=== PATIENT | male | born 1955 | race Hispanic/Latino ===

== ENCOUNTER 2023-07-12 10:08 | Outpatient (RCR) | payer MEDICARE, OTHER ==
[~2023-07-12 10:08] MED LIST: MUPIROCIN 2% OINT 22 GM TUBE ONE
[2023-07-12] MEDS ORDERED: MUPIROCIN 2% OINT 22 GM TUBE ONE (11:50)
[2023-07-16] MEDS ORDERED: COREG3.125 MG PO (14:25)
[2023-07-16] MEDS ORDERED: TASIGNA150 MG PO (14:25)
[2023-07-16] MEDS ORDERED: CLOPIDOGREL75 MG PO (14:25)
[2023-07-16] MEDS ORDERED: LOSARTAN POTASS25 MG PO (14:25)
[2023-07-16] MEDS ORDERED: CRESTOR10 MG PO (14:25)
[2023-07-16] MEDS ORDERED: FEROSUL325 MG PO (14:25)
[2023-07-16] MEDS ORDERED: DOXAZOSIN MESYLA2 MG PO (14:25)
[2023-07-16] MEDS ORDERED: GABAPENTIN300 MG PO (14:25)
[2023-07-16] MEDS ORDERED: NAPROXEN250 MG PO (14:25)
[2023-07-16] MEDS ORDERED: MUPIROCIN22 GM TOP (14:25)
[2023-07-16] MEDS ORDERED: PROTONIX20 MG PO (14:25)
[2023-07-16] MEDS ORDERED: TIZANIDINE HCL4 M1 PO (14:25)
[2023-07-16] MEDS ORDERED: ASPIRIN CHEW81 MG PO (14:25)
[2023-07-16] MEDS ORDERED: NIFEDIPINE ER30 M1 PO (14:25)
[2023-07-16] MEDS ORDERED: FOLIC ACID0.4 MG PO (14:25)
== END 2023-07-27 ==
LOC: WCC 10:08
PROVIDERS: ATTEND Plastic Surgery
DX: I70.235 Atherosclerosis of native arteries of right leg with ulceration of other part of foot (principal); L97.518 Non-pressure chronic ulcer of other part of right foot with other specified severity

== ENCOUNTER 2023-07-15 12:47 | Inpatient (IN) | payer MEDICARE, OTHER ==
[~2023-07-15] VITALS: Ht 167.6 cm; Wt 80.7 kg
[2023-07-15 13:40] LABS: BASOPHILS # (AUTO) 0.1 (0.0-0.1); BASOPHILS % 0.9 % (0.0-1.0); EOSINOPHILS # (AUTO) 0.4 (0.0-0.4); EOSINOPHILS % 4.4 % (0.0-6.0); HEMATOCRIT 37.8 % (38.2-49.6); HEMOGLOBIN 12.6 g/dL (14.0-18.0); LYMPHOCYTES # (AUTO) 2.5 (1.0-3.2); LYMPHOCYTES % 25.4 % (18.0-39.1); MEAN CORPUSCULAR HEMOGLOBIN 27.9 pg (28-32); MEAN CORPUSCULAR HGB CONC 33.3 g/dL (31-35); MEAN CORPUSCULAR VOLUME 83.6 fL (81-99); MONOCYTES # (AUTO) 0.8 (0.2-0.8); NEUTROPHILS # (AUTO) 5.9 (2.1-6.9); PLATELET COUNT 193 x10e3/uL (140-360); RED BLOOD COUNT 4.52 x10e6/uL (4.3-5.7); RED CELL DISTRIBUTION WIDTH 14.3 % (11.7-14.4); WHITE BLOOD COUNT 9.68 x10e3/uL (4.8-10.8)
[2023-07-15 13:53] LABS: INR 0.97; PROTHROMBIN TIME 13.5 seconds (11.9-14.5)
[2023-07-15 13:54] LABS: PARTIAL THROMBOPLASTIN TIME 31.7 seconds (23.8-35.5)
[2023-07-15 13:57] LABS: ANION GAP 15.2 mmol/L (8-16); BLOOD UREA NITROGEN 13 mg/dL (7-26); BUN/CREATININE RATIO 12 (6-25); CALCIUM 9.3 mg/dL (8.4-10.2); CARBON DIOXIDE 23 mmol/L (22-29); CHLORIDE 105 mmol/L (98-107); CREATININE, SERUM 1.08 mg/dL (0.72-1.25); GLUCOSE 76 mg/dL (74-118); POTASSIUM 4.2 mmol/L (3.5-5.1); SODIUM 139 mmol/L (136-145)
[2023-07-15] MEDS ORDERED: ASPIRIN 81 MG CHEW TAB PO ONE (15:15)
[2023-07-15] MEDS ORDERED: ONDANSETRON HCL INJ 2MG/ML 2ML 2 MG/ML VIAL IV PRN (19:45)
[2023-07-15] MEDS ORDERED: HEPARIN 25,000 UNIT/D5W 250ML 1,300 UNIT in DEXTROSE 5% 250ML 250 ML IV SCH ×3 (19:50→21:30)
[2023-07-15 20:00] VITALS: BP 132/68; PULSE 70; RESP 18; TEMP 97.7; O2SAT 98
[2023-07-15] MEDS ORDERED: Vancomycin IV 1 GM in SODIUM CHLORIDE 0.9% 250ML 250 ML IV SCH (20:00)
[2023-07-15] MEDS: GABAPENTIN 100 MG CAP PO SCH (20:54)
[2023-07-15] MEDS: KETOROLAC TROMETHAMINE 30 MG/ML VIAL IV PRN (20:54)
[2023-07-15] MEDS: HYDROCODONE/APAP 10MG-325MG TAB PO PRN (23:15)
[2023-07-16] VITALS (10 sets, daily range): BP systolic 132–161; BP diastolic 61–97; PULSE 53–70; RESP 18–20; TEMP 97.6–98.2; O2SAT 96–100
[2023-07-16 05:51] LABS: BASOPHILS # (AUTO) 0.1 (0.0-0.1); BASOPHILS % 1.2 % (0.0-1.0); EOSINOPHILS # (AUTO) 0.5 (0.0-0.4); EOSINOPHILS % 4.9 % (0.0-6.0); HEMATOCRIT 34.3 % (38.2-49.6); HEMOGLOBIN 11.4 g/dL (14.0-18.0); LYMPHOCYTES # (AUTO) 3.1 (1.0-3.2); LYMPHOCYTES % 32.8 % (18.0-39.1); MEAN CORPUSCULAR HEMOGLOBIN 28.2 pg (28-32); MEAN CORPUSCULAR HGB CONC 33.2 g/dL (31-35); MEAN CORPUSCULAR VOLUME 84.9 fL (81-99); MONOCYTES # (AUTO) 0.8 (0.2-0.8); MONOCYTES % 8.2 % (4.4-11.3); NEUTROPHILS % 52.6 % (38.7-80.0); PLATELET COUNT 155 x10e3/uL (140-360); RED BLOOD COUNT 4.04 x10e6/uL (4.3-5.7); RED CELL DISTRIBUTION WIDTH 14.4 % (11.7-14.4); WHITE BLOOD COUNT 9.41 x10e3/uL (4.8-10.8)
[2023-07-16 06:34] LABS: ANION GAP 13.1 mmol/L (8-16); CALCIUM 8.7 mg/dL (8.4-10.2); CREATININE, SERUM 1.05 mg/dL (0.72-1.25); POTASSIUM 4.1 mmol/L (3.5-5.1)
[2023-07-16] MEDS: KETOROLAC TROMETHAMINE 30 MG/ML VIAL IV PRN (07:09)
[2023-07-16] MEDS: HYDROCODONE/APAP 10MG-325MG TAB PO PRN ×2 (09:13→14:01)
[2023-07-16] MEDS: Vancomycin IV 1 GM in SODIUM CHLORIDE 0.9% 250ML 250 ML IV SCH (09:15)
[2023-07-16] MEDS: GABAPENTIN 100 MG CAP PO SCH ×3 (09:16→20:10)
[2023-07-16] MEDS ORDERED: ONDANSETRON HCL 4 MG ORAL DISINTEGRATING TAB PO PRN (13:00)
[2023-07-16] MEDS ORDERED: CRESTOR10 MG PO (14:25)
[2023-07-16] MEDS ORDERED: COREG3.125 MG PO (14:25)
[2023-07-16] MEDS ORDERED: TASIGNA150 MG PO (14:25)
[2023-07-16] MEDS ORDERED: LOSARTAN POTASS25 MG PO (14:25)
[2023-07-16] MEDS ORDERED: CLOPIDOGREL75 MG PO (14:25)
[2023-07-16] MEDS ORDERED: DOXAZOSIN MESYLA2 MG PO (14:25)
[2023-07-16] MEDS ORDERED: ASPIRIN CHEW81 MG PO (14:25)
[2023-07-16] MEDS ORDERED: TIZANIDINE HCL4 M1 PO (14:25)
[2023-07-16] MEDS ORDERED: MUPIROCIN22 GM TOP (14:25)
[2023-07-16] MEDS ORDERED: NAPROXEN250 MG PO (14:25)
[2023-07-16] MEDS ORDERED: GABAPENTIN300 MG PO (14:25)
[2023-07-16] MEDS ORDERED: FEROSUL325 MG PO (14:25)
[2023-07-16] MEDS ORDERED: PROTONIX20 MG PO (14:25)
[2023-07-16] MEDS ORDERED: NIFEDIPINE ER30 M1 PO (14:25)
[2023-07-16] MEDS ORDERED: FOLIC ACID0.4 MG PO (14:25)
[2023-07-16] MEDS ORDERED: IOPAMIDOL 370 MG/ML 100 ML INFUS..BTL INJ ONE (15:44)
[2023-07-16] MEDS ORDERED: SODIUM CHLORIDE 0.9% 100 ML ONE (15:44)
[2023-07-16] MEDS: ENOXAPARIN SOD INJ 60 MG/0.6 ML SYR SC SCH (20:10)
[2023-07-17] VITALS (8 sets, daily range): BP systolic 101–161; BP diastolic 72–88; PULSE 61–89; RESP 18–20; TEMP 97.1–98.6; O2SAT 98–100
[2023-07-17] MEDS: ENOXAPARIN SOD INJ 60 MG/0.6 ML SYR SC SCH ×2 (09:14→21:15)
[2023-07-17] MEDS: GABAPENTIN 100 MG CAP PO SCH ×3 (09:14→21:15)
[2023-07-17] MEDS: HYDROCODONE/APAP 10MG-325MG TAB PO PRN ×2 (14:35→21:15)
[2023-07-17] MEDS: Vancomycin IV 1 GM in SODIUM CHLORIDE 0.9% 250ML 250 ML IV SCH (17:25)
[2023-07-18] VITALS (8 sets, daily range): BP systolic 105–139; BP diastolic 60–87; PULSE 51–69; RESP 16–20; TEMP 97.5–98.1; O2SAT 97–100
[2023-07-18] MEDS: HYDROCODONE/APAP 10MG-325MG TAB PO PRN ×3 (08:28→19:34)
[2023-07-18] MEDS: ENOXAPARIN SOD INJ 60 MG/0.6 ML SYR SC SCH ×2 (08:28→21:23)
[2023-07-18] MEDS: GABAPENTIN 100 MG CAP PO SCH ×3 (08:28→21:22)
[2023-07-18] MEDS: Vancomycin IV 1 GM in SODIUM CHLORIDE 0.9% 250ML 250 ML IV SCH (17:07)
[2023-07-19] VITALS (8 sets, daily range): BP systolic 110–145; BP diastolic 68–95; PULSE 59–115; RESP 17–19; TEMP 97.8–98.8; O2SAT 95–100
[2023-07-19] MEDS: GABAPENTIN 100 MG CAP PO SCH ×3 (08:02→20:47)
[2023-07-19] MEDS: HYDROCODONE/APAP 10MG-325MG TAB PO PRN ×2 (08:02→20:48)
[2023-07-19] MEDS: ENOXAPARIN SOD INJ 60 MG/0.6 ML SYR SC SCH ×2 (08:03→20:46)
[2023-07-19] MEDS: PENTOXIFYLLINE 400 MG TAB CR PO SCH ×3 (15:11→21:00)
[2023-07-19] MEDS: Vancomycin IV 1 GM in SODIUM CHLORIDE 0.9% 250ML 250 ML IV SCH (18:09)
[2023-07-19] MEDS: CRESTOR 10MG PO SCH ×2 (20:47→21:00)
[2023-07-20] VITALS (7 sets, daily range): BP systolic 100–129; BP diastolic 70–78; PULSE 53–60; RESP 16–20; TEMP 97.4–98.8; O2SAT 98–100
[2023-07-20] MEDS: ACETAMINOPHEN 325 MG TAB PO PRN ×2 (04:17→16:52)
[2023-07-20] MEDS: GABAPENTIN 100 MG CAP PO SCH ×3 (08:50→20:00)
[2023-07-20] MEDS: PENTOXIFYLLINE 400 MG TAB CR PO SCH ×3 (08:51→20:01)
[2023-07-20] MEDS: ENOXAPARIN SOD INJ 60 MG/0.6 ML SYR SC SCH ×2 (08:51→20:01)
[2023-07-20] MEDS: HYDROCODONE/APAP 10MG-325MG TAB PO PRN ×3 (08:52→20:01)
[2023-07-20] MEDS: Vancomycin IV 1 GM in SODIUM CHLORIDE 0.9% 250ML 250 ML IV SCH (16:42)
[2023-07-20] MEDS: KETOROLAC TROMETHAMINE 30 MG/ML VIAL IV PRN (19:43)
[2023-07-20] MEDS: CRESTOR 10MG PO SCH (20:00)
[2023-07-20] MEDS ORDERED: SODIUM CHLORIDE 0.9% 250ML 250 ML ONE (21:12)
[2023-07-21] VITALS (9 sets, daily range): BP systolic 113–186; BP diastolic 66–83; PULSE 53–103; RESP 18–19; TEMP 97.8–98.6; O2SAT 97–100
[2023-07-21] MEDS: GABAPENTIN 100 MG CAP PO SCH ×3 (08:54→20:39)
[2023-07-21] MEDS: PENTOXIFYLLINE 400 MG TAB CR PO SCH ×3 (08:54→20:39)
[2023-07-21] MEDS: ENOXAPARIN SOD INJ 60 MG/0.6 ML SYR SC SCH ×2 (08:54→21:00)
[2023-07-21] MEDS: HYDROCODONE/APAP 10MG-325MG TAB PO PRN ×3 (08:59→20:39)
[2023-07-21] MEDS ORDERED: CEFTRIAXONE 1 GM VIAL IM ONE (10:30)
[2023-07-21] MEDS ORDERED: CEFTRIAXONE 1 GM VIAL ONE (10:43)
[2023-07-21] MEDS: Vancomycin IV 1 GM in SODIUM CHLORIDE 0.9% 250ML 250 ML IV SCH (17:34)
[2023-07-21] MEDS: CRESTOR 10MG PO SCH (20:38)
[2023-07-22] VITALS (8 sets, daily range): BP systolic 112–169; BP diastolic 62–90; PULSE 55–64; RESP 17–19; TEMP 97.7–98.6; O2SAT 99–100
[2023-07-22] MEDS: ENOXAPARIN SOD INJ 60 MG/0.6 ML SYR SC SCH ×2 (09:20→21:08)
[2023-07-22] MEDS: PENTOXIFYLLINE 400 MG TAB CR PO SCH ×3 (09:20→21:06)
[2023-07-22] MEDS: GABAPENTIN 100 MG CAP PO SCH ×3 (09:20→21:06)
[2023-07-22] MEDS: HYDROCODONE/APAP 10MG-325MG TAB PO PRN ×2 (09:38→16:29)
[2023-07-22] MEDS: CEFTRIAXONE 2 GM in SODIUM CHLORIDE 0.9% 100 ML IV SCH (10:23)
[2023-07-22] MEDS: CRESTOR 10MG PO SCH (21:06)
[2023-07-22] MEDS: ACETAMINOPHEN 325 MG TAB PO PRN (21:16)
[2023-07-23 00:46] VITALS: BP 179/54; PULSE 50; RESP 18; TEMP 98.3; O2SAT 97
[2023-07-23 04:49] VITALS: BP 163/75; PULSE 51; RESP 19; TEMP 98.1; O2SAT 99
[2023-07-23] MEDS: PENTOXIFYLLINE 400 MG TAB CR PO SCH (08:49)
[2023-07-23] MEDS: ENOXAPARIN SOD INJ 60 MG/0.6 ML SYR SC SCH (08:49)
[2023-07-23] MEDS: GABAPENTIN 100 MG CAP PO SCH (08:49)
[2023-07-23] MEDS: CEFTRIAXONE 2 GM in SODIUM CHLORIDE 0.9% 100 ML IV SCH (08:49)
[2023-07-23 08:53] VITALS: BP 166/78; PULSE 71; RESP 19; TEMP 98.7; O2SAT 98
[2023-07-23] MEDS ORDERED: CEFTRIAXONE 2 GM in SODIUM CHLORIDE 0.9% 100 ML IV SCH (09:00)
== END 2023-07-23 11:02 | disposition home health service (06) | DRG 540 ==
LOC: ER 12:52 → ERHOLD 15:07 → MED/SURG2 20:20
PROVIDERS: ADMIT Internal Medicine; ATTEND Internal Medicine
PROC: 02HV33Z Insertion of Infusion Device into Superior Vena Cava, Percutaneous Approach (ICD-10-PCS; principal; 2023-07-21)
PROC: B548ZZA Ultrasonography of Superior Vena Cava, Guidance (ICD-10-PCS; 2023-07-21)
DX: M86.8X7 Other osteomyelitis, ankle and foot (principal); C95.10 Chronic leukemia of unspecified cell type not having achieved remission; I70.261 Atherosclerosis of native arteries of extremities with gangrene, right leg; L97.514 Non-pressure chronic ulcer of other part of right foot with necrosis of bone; I70.221 Atherosclerosis of native arteries of extremities with rest pain, right leg; I10 Essential (primary) hypertension; J44.9 Chronic obstructive pulmonary disease, unspecified; Z96.89 Presence of other specified functional implants; E78.5 Hyperlipidemia, unspecified; M48.00 Spinal stenosis, site unspecified; G62.9 Polyneuropathy, unspecified; Z87.891 Personal history of nicotine dependence; Z20.822 Contact with and (suspected) exposure to COVID-19
CPT/HCPCS: 0223U; 36415; 36569; 71045; 75635; 80048; 80202; 82550; 82948; 84484; 85025; 85610; 85730; 87040; 93005; 93925; 99252; 99284; J0696; J1650; J1885; J2543; J7050; Q9967

== ENCOUNTER 2023-08-16 08:42 | Outpatient (RCR) | payer OTHER ==
[~2023-08-16 08:42] MED LIST changes: +ASPIRIN CHEW81 MG PO; +CLOPIDOGREL75 MG PO; +COREG3.125 MG PO; +CRESTOR10 MG PO; +DOXAZOSIN MESYLA2 MG PO; +FEROSUL325 MG PO; +FOLIC ACID0.4 MG PO; +GABAPENTIN300 MG PO; +LOSARTAN POTASS25 MG PO; -MUPIROCIN 2% OINT 22 GM TUBE ONE; +MUPIROCIN22 GM TOP; +NAPROXEN250 MG PO; +NIFEDIPINE ER30 M1 PO; +PROTONIX20 MG PO; +TASIGNA150 MG PO; +TIZANIDINE HCL4 M1 PO
== END 2023-08-26 ==
LOC: WCC 08:42
PROVIDERS: ATTEND Plastic Surgery
DX: I70.235 Atherosclerosis of native arteries of right leg with ulceration of other part of foot (principal); M86.171 Other acute osteomyelitis, right ankle and foot; R09.02 Hypoxemia; L97.518 Non-pressure chronic ulcer of other part of right foot with other specified severity; I79.8 Other disorders of arteries, arterioles and capillaries in diseases classified elsewhere; I99.8 Other disorder of circulatory system